=== PATIENT | male | born 1960 | race African-American/Black ===

== ENCOUNTER 2019-11-30 09:39 | Outpatient (CLI) | payer MEDICAID ==
[~2019-11-30] VITALS: Ht 177.8 cm; Wt 62.6 kg
[2019-11-30] MEDS ORDERED: BP MED (10:41)
[2019-11-30] MEDS ORDERED: CHOLESTEROL (10:41)
[2019-11-30] MEDS ORDERED: TRAZODONE HCL50 MG ORAL (10:41)
[2019-11-30] MEDS ORDERED: ASPIRIN EC81 MG ORAL (10:41)
[2019-11-30 10:43] VITALS: BP 99/68
--- NOTE | 2019-11-30 16:45 | Consultation ---
DATE OF CONSULTATION: 11/30/2019 CHIEF COMPLAINT: Referral for screening colonoscopy. PAST MEDICAL HISTORY: 1. Hypertension 2. Hypercholesterolemia. 3. CVA. 4. LA. PAST SURGICAL HISTORY: None. MEDICATIONS: Aspirin, blood pressure medication, cholesterol medication, trazodone. FAMILY HISTORY: Father had diabetes. Uncle had colon cancer. SOCIAL HISTORY: The patient drinks alcohol. Smokes cigarettes one pack a day. ALLERGIES: No known allergies. REVIEW OF SYSTEMS: Positive for mild right upper quadrant abdominal pain. No other symptoms. No prior history of endoscopy. No prior history of colonoscopy. No nausea. No vomiting. No rectal bleeding. PHYSICAL EXAMINATION: VITAL SIGNS: Temperature 98, blood pressure 99/68, pulse 78, respirations 20. HEENT: Normocephalic and atraumatic. Sclerae anicteric. NECK: Supple. No evidence of obvious lymphadenopathy. CARDIOVASCULAR: Regular rate and rhythm. Plus S1, S2. LUNGS: Clear to auscultation bilaterally. ABDOMEN: Positive bowel sounds. Soft and nontender. No rebound. No guarding. No peritoneal sign. EXTREMITIES: No cyanosis. No clubbing. No edema. ASSESSMENT/PLAN: The patient is a 58-year-old male, screening colonoscopy. The patient was given instruction for colonoscopy. The prep was explained to him. The risks and benefits of procedure was explained to him. We are going to send authorization and we will schedule him when authorization is obtained. Chris Evans M.D. DR: Vashti JOB#: [id number] CC:
== END 2019-11-30 15:50 | disposition home or self-care (01) ==
LOC: PAN 09:39
DX: R10.11 Right upper quadrant pain (principal); I10 Essential (primary) hypertension; E78.00 Pure hypercholesterolemia, unspecified; I25.2 Old myocardial infarction; Z86.73 Personal history of transient ischemic attack (TIA), and cerebral infarction without residual deficits; Z79.82 Long term (current) use of aspirin; F17.210 Nicotine dependence, cigarettes, uncomplicated
CPT/HCPCS: G0463